=== PATIENT | female | born 1960 | race Caucasian/White ===

== ENCOUNTER 2018-06-01 10:33 | Day surgery (SDC) | payer OTHER ==
[~2018-06-01] VITALS: Ht 175.3 cm; Wt 74.4 kg
== END 2018-06-01 11:49 | disposition home or self-care (01) ==
LOC: MDS 10:33 → MMU 10:35 → MDS 11:49
PROVIDERS: ATTEND Internal Medicine Gastroenterology
DX: B18.2 Chronic viral hepatitis C (principal); Z53.8 Procedure and treatment not carried out for other reasons; G43.909 Migraine, unspecified, not intractable, without status migrainosus; M17.11 Unilateral primary osteoarthritis, right knee; Z98.890 Other specified postprocedural states